=== PATIENT | female | born 1995 | race Caucasian/White ===

== ENCOUNTER 2016-11-11 18:05 | Emergency (ER) | payer OTHER ==
--- NOTE | 2016-11-11 18:47 | RADIOLOGY REPORT ---
HISTORY: Fall, twisting motion COMPARISON: None. FINDINGS: Three views of the ankle obtained. There is no acute fracture. There is no lytic or sclerotic lesion. The ankle mortise is intact. Th ere is pronounced soft tissue edema overlying the lateral malleolus. No significant degenerative juan pablo nges are noted. IMPRESSION: 1. No acute fracture or dislocation. 2. Soft tissue edema overlying lateral malleolus. Final Electronic Signature: This report was electronically signed by Bobby Sandoval MD on 11/11/2016 6 :45 PM. [email or web address] /
[2016-11-11] MEDS ORDERED: ONDANSETRON ODT 4 MG TAB.RAPDIS ONE (19:13)
--- NOTE | 2016-11-11 19:43 | ER PHYSICIAN DOCUMENTATION ---
Physician Documentation [facility] Name:Lona Gorman Age:21 yrs Sex:Female :1995 Arrival Date:11/11/2016 Time:18:05 Bed6 Private MD:Genaro Awan ED, Tom Disposition: 11/12 09:28 Chart complete. tl1 Disposition: 11/11/16 18:48 Discharged to Home/Self Care. Impression: Ankle Sprain. - Condition is Good. - Discharge Instructions: CRUTCH WALKING, WALKER BOOT, Ankle - SPRAIN ANKLE (w/ x-ray). - Prescriptions for [place] 5- 325 mg Oral Tablet - take 1 tablet by ORAL route every 6 hours As needed; 20 tablet. Zofran 4 mg Oral Tablet - take 1-2 tablet by ORAL route every 4-6 hours As needed; 10 tablet. - Medical Reconciliation form form. - Follow up: Gene De Leon DO, Sumit Pacheco MD; When: 4- 6 days; Reason: Recheck today's complaints, Continuance of care. - Problem is new. - Symptoms have improved. HPI: 11/11 18:20 This 21 yrs old Female presents to ER via Private Vehicle with complaints of tl1 Ankle Injury. 18:20 The patient presents with an injury, swelling, tenderness. The complaints affect the tl1 left ankle. Onset: The symptom(s)/episode began/occurred suddenly, just prior to arrival. Context: The problem was sustained outdoors, resulted from a mis-step by the patient, The mechanism of injury involved inversion of the affected ankle. The patient is unable to bear weight. The patient is not able to ambulate. Historical: - Allergies: PENICILLINS; - Home Meds: 1. None - PMHx: None; - PSHx: Tonsillectomy; - Tetanus: < 10 years. - Ebola Screening: : Patient denies exposure to infectious person. Patient denies travel to an Ebola-affected area in the 21 days before illness onset. . - Immunization history: Pneumococcal vaccine status is unknown. - Social history: Smoking status: Patient uses tobacco products, current every day smoker. Patient uses alcohol marijuana. ROS: 18:20 MS/extremity: Positive for injury or acute deformity, swelling, tenderness, of the left tl1 lateral ankle and left medial ankle. 18:20 All other systems are negative. Exam: 18:20 Constitutional: This is a well developed, well nourished patient who is awake, alert, tl1 and in no acute distress. 18:20 Head/Face: Normocephalic, atraumatic. tl1 18:20 Cardiovascular: Rate: normal. 18:20 Respiratory: Exam negative for acute changes, Respirations: normal. 18:20 Musculoskeletal/extremity: Extremities: grossly normal except: noted in the left lateral ankle and left medial ankle: pain, swelling, tenderness, TTP over very swollen lateral malleolus, ATFL and deltoid ligament. Diffuse moderate ankle swellling. She cannot tolerate anterior drawer test. Distal NVI, Pulses: are normal with no appreciated deficits, Sensation intact. 18:20 Skin: Exam negative for acute changes. Vital Signs: 18:20 BP 124 / 63; Pulse 90; Temp 98.2; Pulse Ox 97% on R/A; Pain 9/10; st Procedures: 18:20 Splinting: Splint applied to left lateral ankle, left Achilles, left medial ankle and tl1 anterior aspect of left ankle using Ortho 3D boot, applied by nurse. Examined by me, post splint application: neurovascular intact. MDM: 18:17 Patient medically screened. tl1 18:20 Differential diagnosis: fracture, sprain. Data reviewed: vital signs, nurses notes, tl1 radiologic studies, plain films, and as a result, I will discharge patient. Test interpretation: by ED physician or midlevel provider: plain radiologic studies. Counseling: I had a detailed discussion with the patient and/or guardian regarding: the historical points, exam findings, and any diagnostic results supporting the discharge/admit diagnosis, radiology results, the need for outpatient follow up, a orthopedic surgeon, to return to the emergency department if symptoms worsen or persist or if there are any questions or concerns that arise at home, Grade II ankle sprain. Can't r/o grade III. Needs ortho f/u.. Response to treatment: the patient's symptoms have mildly improved after treatment, and as a result, I will discharge patient. 11/11 18:48 Order name: ANKLE; 3[place] [id number]; Complete Time: 18:49 EDMS 11/11 18:49 Order name: ORTHO: Crutches & Training; Complete Time: 19:39 tl1 11/11 18:49 Order name: Walking Boot; Complete Time: 19:39 tl1 Dispensed Medications: 19:00 CANCELLED (Physician Discretion): Vicodin (5 mg-500 mg) [address] 19:09 Drug: Zofran 4 mg; Route: PO; 19:38 Follow up: Response: Nausea is decreased mk2 19:09 CANCELLED (Other Intervention Used): HYDROcodone-acetaminophen 5 mg-325 mg 1 tabs PO fc once 19:10 Drug: HYDROcodone-acetaminophen 5 mg-325 mg 2 tabs; Route: PO; 19:39 Follow up: Response: No adverse reaction mk2 Signatures: Liset Manning RN RN st Kruger, Meg, RN RN mk2 Angel Michael MD MD 1 alma liu
--- NOTE | 2016-11-11 19:43 | ER NURSING DOCUMENTATION ---
Nurse's Notes [facility] Name:Lona Gorman Age:21 yrs Sex:Female :1995 Arrival Date:11/11/2016 Time:18:05 Bed6 Private MD:Genaro Awan Diagnosis:Ankle Sprain Presentation: 11/11 18:16 Acuity: VELASQUEZ 3 st 18:17 Presenting complaint: Patient states: pt tripped and fell hurting her left ankle. pt st was able to hobble to finish the hike. Transition of care: Home. 18:17 Method Of Arrival: Private Vehicle st Triage Assessment: 18:19 General: Appears in no apparent distress, Behavior is cooperative. Pain: Complains of st pain in left lateral malleolus Pain currently is 9 out of 10 on a pain scale. Pain began suddenly. Musculoskeletal: Swelling present in left lateral ankle. Historical: - Allergies: PENICILLINS; - Home Meds: 1. None - PMHx: None; - PSHx: Tonsillectomy; - Tetanus: < 10 years. - Ebola Screening: : Patient denies exposure to infectious person. Patient denies travel to an Ebola-affected area in the 21 days before illness onset. . - Immunization history: Pneumococcal vaccine status is unknown. - Social history: Smoking status: Patient uses tobacco products, current every day smoker. Patient uses alcohol marijuana. Screenin:21 Infectious Disease Risk None. Abuse screen: Denies threats or abuse. Denies injuries st from another. Nutritional screening: No deficits noted. Vital Signs: 18:20 BP 124 / 63; Pulse 90; Temp 98.2; Pulse Ox 97% on R/A; Pain 9/10; st ED Course: 18:13 Patient arrived in ED. jl 18:13 Genaro Awan MD is Private Physician. jl 18:16 Liset Manning, RN is Primary Nurse. st 18:[address] 18:17 Angel Michael MD is Attending Physician. tl1 18:21 Valuables Remains with patient. st 18:30 Ice pack to injury. st 18:47 Gene De Leon DO, Sumit Pacheco MD is Referral Physician. tl1 19:41 Crutch training done. Walking boot applied. mk2 Administered Medications: 19:00 CANCELLED (Physician Discretion): Vicodin (5 mg-500 mg) [address] 19:09 Drug: Zofran 4 mg; Route: PO; 19:38 Follow up: Response: Nausea is decreased 2 19:09 CANCELLED (Other Intervention Used): HYDROcodone-acetaminophen 5 mg-325 mg 1 tabs PO once 19:10 Drug: HYDROcodone-acetaminophen 5 mg-325 mg 2 tabs; Route: PO; 19:39 Follow up: Response: No adverse reaction 2 Outcome: 18:48 Discharge ordered by . josé miguel 19:41 Discharged to home ambulatory, All discharge and training done by Ravin. 2 19:41 Condition: improved 19:41 Discharge instructions given to patient, Instructed on crutch walking, discharge instructions, follow up and referral plans. medication usage, Prescriptions given X 1, All DC done by Ravin 19:42 Patient left the ED. 2 11/12 09:29 Discharge F/U Call: Unable to reach: no answer st Signatures: Liset Manning RN Chyna Montero RN Angel Maldonado MD MD tl1 collins, floyd fc Lietz, Jeff jl
== END 2016-11-11 19:43 | disposition home or self-care (01) ==
LOC: ER 18:05
DX: S96.912A Strain of unspecified muscle and tendon at ankle and foot level, left foot, initial encounter (principal); W01.0XXA Fall on same level from slipping, tripping and stumbling without subsequent striking against object, initial encounter; Y92.838 Other recreation area as the place of occurrence of the external cause; Y93.01 Activity, walking, marching and hiking
CPT/HCPCS: 99283